=== PATIENT | male | born 1970 | race Caucasian/White ===

== ENCOUNTER 2017-09-01 05:22 | Day surgery (SDC) | payer BC ==
[~2017-09-01] VITALS: Ht 182.9 cm; Wt 99.9 kg
[~2017-09-01 05:22] MED LIST: None at this Time
[2017-09-01] MEDS ORDERED: LACTATED RINGERS 1,000 ML IV SCH (06:03)
[2017-09-01] MEDS ORDERED: FENTANYL PF 250 MCG/5ML ONE (06:08)
[2017-09-01] MEDS ORDERED: MIDAZOLAM 1 MG/ML, 2ML ONE (06:08)
[2017-09-01] MEDS ORDERED: NEOSTIGMINE 1 MG/ML, 10ML ONE (06:14)
[2017-09-01] MEDS ORDERED: ONDANSETRON 2MG/ML, 2ML ONE (06:14)
[2017-09-01] MEDS ORDERED: GLYCOPYRROLATE 0.2MG/1ML, 5ML ONE (06:14)
[2017-09-01] MEDS ORDERED: DEXAMETHASONE 4 MG/ML, 1ML ONE (06:14)
[2017-09-01] MEDS ORDERED: PROPOFOL 10 MG/ML, 20ML ONE (06:14)
[2017-09-01] MEDS ORDERED: ROCURONIUM 10 MG/ML ONE (06:14)
[2017-09-01] MEDS ORDERED: SUCCINYLCHOLINE 20 MG/ML, 10ML ONE (06:14)
[2017-09-01] MEDS ORDERED: CEFAZOLIN 1,000 MG ONE (06:14)
[2017-09-01] MEDS ORDERED: ROPIvacaine/PF 0.5%, 30 ML ONE (06:19)
[2017-09-01] MEDS ORDERED: BUPIVACAINE/PF 0.25% ONE (06:21)
[2017-09-01] MEDS ORDERED: EPINEPHRINE 1 MG/ML, 1ML ONE (06:21)
[2017-09-01 06:23] VITALS: BP 132/91
[2017-09-01] MEDS ORDERED: MEPERIDINE/PF 25MG/0.5ML IVPush PRN (07:00)
[2017-09-01] MEDS ORDERED: OXYcodone 5 MG/5 ML ORAL.SOL UDC PO PRN (07:00)
[2017-09-01] MEDS ORDERED: PROMETHAZINE 25 MG/ML, 1ML IV PRN (07:00)
[2017-09-01] MEDS ORDERED: HYDROmorphone 1 MG/ML, 1ML IV PRN (07:00)
[2017-09-01] MEDS ORDERED: METOPROLOL 1 MG/ML, 5ML IV PRN (07:00)
[2017-09-01] MEDS ORDERED: hydrALAzine 20 MG/ML, 1ML IV PRN (07:00)
[2017-09-01] MEDS ORDERED: ALBUTEROL SULFATE 2.5 MG/3 ML NPPB PRN (07:00)
[2017-09-01] MEDS ORDERED: ACETAMINOPHEN 325 MG TABLET PO PRN (07:00)
[2017-09-01] MEDS ORDERED: MIDAZOLAM 1 MG/ML, 2ML IV PRN (07:00)
[2017-09-01] MEDS ORDERED: FENTANYL PF 100 MCG/2ML IV PRN (07:00)
[2017-09-01] MEDS ORDERED: MEPERIDINE/PF 25MG/0.5ML ONE (08:15)
[2017-09-01] MEDS ORDERED: ACETAMINOPHEN 650 MG/20.3 ML UDC ONE (08:16)
[2017-09-01] MEDS ORDERED: OXYcodone 5 MG/5 ML ORAL.SOL UDC ONE (08:16)
[2017-09-01] MEDS ORDERED: ACETAMINOPHEN 325 MG TABLET ONE (08:16)
== END 2017-09-01 10:20 ==
LOC: OUT 05:22
PROVIDERS: ATTEND Orthopaedic Surgery
DX: M19.011 Primary osteoarthritis, right shoulder (principal); M75.111 Incomplete rotator cuff tear or rupture of right shoulder, not specified as traumatic; M75.41 Impingement syndrome of right shoulder; S43.431A Superior glenoid labrum lesion of right shoulder, initial encounter; X58.XXXA Exposure to other specified factors, initial encounter; Y93.89 Activity, other specified; Y92.89 Other specified places as the place of occurrence of the external cause; Y99.8 Other external cause status
CPT/HCPCS: 29822; 29826; J0171; J0330; J0690; J1100; J2250; J2405; J2704; J2710; J2795; J3010; J3490; J7120